=== PATIENT | female | born 1985 | race Caucasian/White ===

== ENCOUNTER 2016-08-01 21:52 | Emergency (ER) | payer OTHER ==
[~2016-08-01] VITALS: Ht 160 cm; Wt 56.5 kg
[~2016-08-01 21:52] MED LIST: PREN1TAB13 PO
[2016-08-01 21:57] VITALS: Ht 160 cm; Wt 56.5 kg
--- NOTE | 2016-08-01 22:44 | ERD ---
ER Documentation Chief Complaint Date/Time DATE: 08/01/16 TIME: 22:41 Chief Complaint FLANK PAIN X 8 DAYS HPI 31-year-old female presents here in emergency department for complaints of lower back pain, pelvic pain starting 8 days prior to arrival. Patient's approximately 13 weeks . Patient is 3 para 2 0. Patient described the pain as sharp pain, 6/10 scale, intermittent. It is worse upon movement. It radiates the bilateral lower legs. Patient did not take any medications to help with symptoms. Patient was seen in another emergency department, was too to have normal examination. ROS All systems reviewed and are negative except as per history of present illness. Medications Home Meds Reported Medications Vit-Iron Fumarate-FA ( Vitamins Tablet) 1 Tab Tablet, 1 TAB PO DAILY, TAB 05/24/15 Allergies Allergies: Coded Allergies: No Known Allergy (Verified Allergy, Unknown, 11/20/08) PMhx/Soc Medical and Surgical Hx: pt denies Medical Hx, pt denies Surgical Hx FmHx Family History: No coronary disease, No diabetes, No other Physical Exam Vitals Vital Signs Date Time Temp Pulse Resp B/P Pulse Ox O2 Delivery O2 Flow Rate FiO2 08/01/16 21:57 99.7 87 20 134/72 98 Physical Exam GENERAL: The patient is well developed and appropriate for usual state of health, in no apparent distress. CHEST: Clear to auscultation bilaterally. There are no rales, wheezes or rhonchi. HEART: Regular rate and rhythm. No murmurs, clicks, rubs or gallops. No S3 or S4. ABDOMEN: Soft, nontender and nondistended. Good bowel sounds. No rebound or guarding. No gross peritonitis. No gross organomegaly or masses. No Wharton sign or McBurney point tenderness. BACK: No midline or flank tenderness. EXTREMITIES: Equal pulses bilaterally. There is no peripheral clubbing, cyanosis or edema. No focal swelling or erythema. Full range of motion. Grossly neurovascularly intact. NEURO: Alert and oriented. Cranial nerves 2-12 intact. Motor strength in all 4 extremities with 5/5 strength. Sensation grossly intact. Normal speech and gait. SKIN: There is no apparent rash or petechia. The skin is warm and dry. HEMATOLOGIC AND LYMPHATIC: There is no evidence of excessive bruising or lymphedema. No gross cervical, axillary, or inguinal lymphadenopathy. Result Diagram: 1/13/17 2249 Results 24 hrs Laboratory Tests Test 08/01/16 22:49 08/01/16 23:09 Basophils # 0.010^3/ul Basophils % 0.2% Beta HCG, Quantitative 95636.0mIU/ml Eosinophils # 0.210^3/ul Eosinophils % 2.1% Hematocrit 37.4% Hemoglobin 13.1g/dl Lymphocytes # 3.010^3/ul Lymphocytes % 28.7% Mean Corpuscular Hemoglobin 29.6pg Mean Corpuscular Hemoglobin Concent 35.1g/dl Mean Corpuscular Volume 84.2fl Mean Platelet Volume 8.1fl Monocytes # 0.710^3/ul Monocytes % 6.3% Neutrophils # 6.510^3/ul Neutrophils % 62.7% Nucleated Red Blood Cells # 0.010^3/ul Nucleated Red Blood Cells % 0.0/100WBC Platelet Count 98948^3/UL Red Blood Count 4.4410^6/ul Red Cell Distribution Width 13.1% White Blood Count 10.410^3/ul Urine Bacteria FEW Urine Bilirubin NEGATIVE Urine Clarity CLEAR Urine Color LT. YELLOW Urine Glucose NEGATIVE% Urine Hemoglobin TRACE Urine Ketones NEGATIVE Urine Leukocyte Esterase TRACE Urine Microscopic RBC 2-5/HPF Urine Microscopic WBC 5-10/HPF Urine Nitrite NEGATIVE Urine Specific [place]ifle >=1.030 Urine Squamous Epithelial Cells MODERATE Urine Total Protein NEGATIVE Urine Urobilinogen 0.2 E.U./dL Urine pH 6.0 PROCEDURE: US OB. CLINICAL INDICATION: Pain. TECHNIQUE: Multiple sonographic images of the pelvis were obtained. Transabdominal imaging only was performed. The images were reviewed on a PACS workstation. COMPARISON: 07/24/2016. FINDINGS: Single live intrauterine is identified. Cardiac activity is present with 161 beats per minute. There is a breech presentation. Measurements: BPD = 14 weeks 1 day. HC = 14 weeks 0 days. AC = 14 weeks 0 days. FL = 14 weeks 0 days. Estimated gestational age of approximately 14 weeks 0 days. The estimated date of delivery is 01/30/2017. The EFW = 88 g which is at the less than 3rd percentile.. The placenta is posterior. IMPRESSION: Single live intrauterine gestation of approximately 14 weeks 0 days. RPTAT: [facility]K .Gerard Delcid MD, MD Date Time Electronically viewed and signed by .Gerard Delcid MD, MD on 08/01/2016 23:31 Procedures/MDM Medical Decision Making: Patient symptoms for about pain is nonspecific at this time, most likely from musculoskeletal pain from the groin . Patient also has urinary tract infection and will be treated. Patient will be given Keflex prescription to go home with. Patient will be given Tylenol for pain. There is low suspicion for abdominal emergencies at this time. Patients abdominal exam is normal at this time. Ultrasound done and noted to have a viable which is stable. There is low suspicion for appendicitis, cholecystitis, abdominal aortic aneurysms or peritonitis at this time. There is low suspicion for sepsis. Patient appears well and is hemodynamically stable. Low suspicion for pyelonephritis. No CVA tenderness noted. Disposition: Home. Condition: Stable Prescription Tylenol, Keflex Instructions: Patient is advised to take medications as prescribed. Patient is advised to rest, increase fluid intake and do brat diet for next 1-2 days and progress as tolerated. Patient is advised that if symptoms are worse, severe abdominal pain, uncontrolled vomiting, high fever, severe flank pain, worst signs and symptoms, to return to the emergency department immediately. Otherwise, patient can follow up with primary care doctor in 5-7 days. Departure Diagnosis: Primary Impression: Back pain Back pain location: low back pain Chronicity: acute Back pain laterality: bilateral Sciatica presence: without sciatica Qualified Code: M54.5 - Acute bilateral low back pain without sciatica Additional Impressions: UTI (urinary tract infection) Urinary tract infection type: acute cystitis Hematuria presence: without hematuria Qualified Code: N30.00 - Acute cystitis without hematuria Intrauterine Condition: Stable Patient Instructions: Back Pain (Acute Or Chronic), Understanding Urinary Tract Infections (UTIs) Additional Instructions: Patient is advised to take medications as prescribed. Patient is advised to rest , increase fluid intake and do brat diet for next 1-2 days and progress as tolerated. Patient is advised that if symptoms are worse, severe abdominal pain , uncontrolled vomiting, high fever, severe flank pain, worst signs and symptoms , to return to the emergency department immediately. Otherwise, patient can follow up with primary care doctor in 5-7 days. KOFI ADAIR NP Aug 01, 2016 22:44
[2016-08-01 23:19] LABS: ADD UMIC YES; URINE BILIRUBIN (Dip) NEGATIVE (NEGATIVE); URINE BLOOD (Dip) TRACE (NEGATIVE); URINE COLOR LT. YELLOW (YELLOW); URINE GLUCOSE (Dip) NEGATIVE (NEGATIVE); URINE KETONES (Dip) NEGATIVE (NEGATIVE); URINE LEUKOCYTE ESTERASE (Dip) TRACE (NEGATIVE); URINE NITRITE (Dip) NEGATIVE (NEGATIVE); URINE TOTAL PROTEIN (Dip) NEGATIVE (NEGATIVE); URINE UROBILINOGEN (Dip) 0.2 E.U./dL (0.1-1.0)
--- NOTE | 2016-08-01 23:31 | RADRPT ---
PROCEDURE: US OB. CLINICAL INDICATION: Pain. TECHNIQUE: Multiple sonographic images of the pelvis were obtained. Transabdominal imaging only w as performed. The images were reviewed on a PACS workstation. COMPARISON: 07/24/2016. FINDINGS: Single live intrauterine is identified. Cardiac activity is present with 161 beats per mi nute. There is a breech presentation. Measurements: BPD = 14 weeks 1 day. HC = 14 weeks 0 days. AC = 14 weeks 0 days. FL = 14 weeks 0 days. Estimated gestational age of approximately 14 weeks 0 days. The estimated date of delivery is 01/30/2017. The EFW = 88 g which is at the less than 3rd percentile.. The placenta is posterior. IMPRESSION: Single live intrauterine gestation of approximately 14 weeks 0 days. RPTAT: [facility]VK .Gerard Delcid MD, MD Date Time Electronically viewed and signed by .Gerard Delcid MD, MD on 08/01/2016 23:31 .K/
[2016-08-01 23:42] LABS: BASOPHILS % 0.2 % (0.0-2.0); EOSINOPHILS # 0.2 10^3/ul (0.0-0.5); EOSINOPHILS % 2.1 % (0.0-7.0); HEMATOCRIT 37.4 % (37.0-47.0); HEMOGLOBIN 13.1 g/dl (12.0-16.0); LYMPHOCYTES % 28.7 % (15.0-51.0); MEAN CORPUSCULAR HEMOGLOBIN 29.6 pg (29.0-33.0); MEAN CORPUSCULAR HGB CONC 35.1 g/dl (32.0-37.0); MEAN CORPUSCULAR VOLUME 84.2 fl (82.0-101.0); MEAN PLATELET VOLUME 8.1 fl (7.4-10.4); MONOCYTE # 0.7 10^3/ul (0.3-0.9); MONOCYTES % 6.3 % (0.0-11.0); NEUTROPHIL # 6.5 10^3/ul (1.6-7.5); NEUTROPHILS % 62.7 % (39.0-77.0); PLATELET COUNT 360 10^3/UL (140-440); RED BLOOD COUNT 4.44 10^6/ul (4.20-5.40); RED CELL DISTRIBUTION WIDTH 13.1 % (11.5-14.5); UNCORRECTED WBC 10.4 10^3/ul (4.8-10.8); WHITE BLOOD COUNT 10.4 10^3/ul (4.8-10.8)
[2016-08-01 23:52] LABS: CONDITION 1
[2016-08-01 23:58] LABS: BACTERIA,URINE FEW; SQUAMOUS EPITHELIAL CELL,UR MODERATE
[2016-08-02] MEDS ORDERED: ACET500C5 PO (01:00)
[2016-08-02] MEDS ORDERED: CEPH-443 PO (01:00)
[2016-08-02 01:11] VITALS: BP 112/63; PULSE 84; RESP 18; TEMP 98.6
== END 2016-08-02 01:36 | disposition home or self-care (01) ==
LOC: FTE 21:52
DX: O99.89 Other specified diseases and conditions complicating pregnancy, childbirth and the puerperium (principal); O23.11 Infections of bladder in pregnancy, first trimester; R10.2 Pelvic and perineal pain; M54.5 Low back pain; Z3A.14 14 weeks gestation of pregnancy
CPT/HCPCS: 36415; 76805; 81001; 84702; 85025; 86900; 86901; Z7502; 81003

== ENCOUNTER 2017-02-01 09:24 | Inpatient (IN) | payer OTHER ==
[~2017-02-01] VITALS: Ht 154.9 cm; Wt 74.5 kg
[~2017-02-01 09:24] MED LIST changes: +ACET500C5 PO; +CEPH-443 PO
[2017-02-01 09:29] VITALS: Ht 154.9 cm; Wt 74.5 kg
[2017-02-01 09:34] VITALS: BP 121/76; PULSE 81; RESP 18
--- NOTE | 2017-02-01 10:26 | RADRPT ---
PROCEDURE: US OB. CLINICAL INDICATION: Post dates TECHNIQUE: Multiple sonographic images of the pelvis were obtained. The images were reviewed on a PACS workstation. COMPARISON: No prior studies are available for comparison. FINDINGS: There is a single live intrauterine . cardiac activity is identified at a rate of 16 5 beats per minute. presentation is cephalic. Placenta is fundal grade II. Biophysical profile score is as follows: Breathing 2 Movements 2 Tone 2 Fluid volume 2 Amniotic fluid index = 12.03 cm Total biophysical profile score = 8/8 IMPRESSION: Biophysical profile score = 8/8 RPTAT: HH .Phillip Miguel MD, Date Time Electronically viewed and signed by .Phillip Miguel MD, MD on 02/01/2017 10:25 .W/
--- NOTE | 2017-02-01 10:30 | RADRPT ---
PROCEDURE: US OB. CLINICAL INDICATION: Post dates TECHNIQUE: Multiple sonographic images of the pelvis were obtained. The images were reviewed on a PACS workstation. COMPARISON: No prior studies are available for comparison. FINDINGS: There is a single viable intrauterine gestation. Cardiac activity is present with 144 beats per min [place] [employer]. There is a cephalic presentation. Measurements were made in order to determine age. The results are as follows: BPD =8.46 cm HC =31.20 cm AC =31.48 cm FL =6.68 cm. Estimated gestational age of approximately 35 weeks 0 days The estimated date of delivery is 03/08/2017. The EFW = 2578 g < 3% . The placenta is fundal grade II.. There is no evidence for an abruption There is a normal amount of amniotic fluid with an BRITTANEY = 12.03 cm. IMPRESSION: Single viable intrauterine gestation of approximately 35 weeks 0 days. The estimated date of delive ry is 03/08/2017 . If there is significant discrepancy between the estimated gestational age by LMP which is 40 weeks 1 day compared the estimated ultrasound dates of 35 weeks 0 days RPTAT: HH .Phillip Miguel MD, Date Time Electronically viewed and signed by .Phillip Miguel MD, MD on 02/01/2017 10:30 .W/
[2017-02-01] MEDS ORDERED: LACTATED RINGER'S 1,000 ML IV SCH (10:51)
--- NOTE | 2017-02-01 10:55 | TRIAGE ---
OB Triage Datetime Report Generated by CPN: 02/01/2017 10:55 Datetime: 02/01/2017 09:36 Time of Arrival: 02/01/2017 09:16 EGA: 40.1 Arrived By: Ambulatory Arrived From: Home Chief Complaint: Came with prescription from MD Greenwood's office for EFW and BPP Movement: Present Contractions: Denies/Absent Rupture of Membranes: Denies Vaginal Bleeding: Normal Show Vaginal Discharge: Denies Recent Sexual Intercouse: Denies Abdominal Trauma: Not Applicable Patient Complaints: Other Initial Plan: EFW, BPP Datetime: 02/01/2017 09:35 Assessment Type: Triage Maternal Assessment Level of Consciousness: Fully Conscious DTR's/Clonus: DTRs 2+; No Clonus Headache: Denies Blurred Vision: No Respiratory Effort: Unlabored; Regular Rhythm; Equal Expansion Breath Sounds, Left: Clear and Equal Breath Sounds, Right: Clear and Equal Nausea/Vomiting: Denies RUQ Epigastric Pain: Denies Lower Extremities Edema: Bilateral Lower Extremities Degree: Trace Upper Extremities Edema: None Degree: None Facial Edema: None Fall Risk Assessment History of Falling: (0) No Secondary Diagnosis: (0) No Ambulatory Aid: (0) Bedrest/Nurse Assist IV Therapy: (0) No Gait: (0) Normal/Bedrest/Immobile Mental Status: (0) Oriented to Own Ability Fall Score: 0 Fall Risk Score Definition: No Risk: No action required Datetime: 02/01/2017 09:25 Stage of : OB Triage
[2017-02-01] MEDS ORDERED: METHYLERGONOVINE 0.2 MG INJ IM PRN ×2 (11:00→14:00)
[2017-02-01] MEDS ORDERED: LIDOCAINE 1% (MPF) 30 ML INJ INJ PRN (11:00)
[2017-02-01] MEDS ORDERED: LACTATED RINGER'S 1,000 ML IV PRN (11:00)
[2017-02-01] MEDS ORDERED: AMPICILLIN 2 GM/NS (PMX) 100 ML IV ONE (11:00)
[2017-02-01] MEDS ORDERED: CARBOPROST 250 MCG INJ IM PRN ×2 (11:00→14:00)
[2017-02-01] MEDS ORDERED: OXYTOCIN 30 UNITS/LR 500 ML IV SCH ×2 (11:00)
[2017-02-01] MEDS ORDERED: IBUPROFEN 600 MG TAB PO PRN (11:00)
[2017-02-01] MEDS ORDERED: OXYTOCIN 30 UNITS/LR 500 ML IV PRN ×2 (11:00→14:00)
[2017-02-01] MEDS ORDERED: BUTORPHANOL 2 MG INJ IV PRN (11:00)
[2017-02-01] MEDS ORDERED: MISOPROSTOL 200 MCG TAB PR PRN ×2 (11:00→14:00)
[2017-02-01 11:37] LABS: ADD SCAN DIFF NO
[2017-02-01 11:42] LABS: BASOPHILS % 0.3 % (0.0-2.0); EOSINOPHILS # 0.1 10^3/ul (0.0-0.5); EOSINOPHILS % 0.8 % (0.0-7.0); HEMATOCRIT 40.1 % (37.0-47.0); HEMOGLOBIN 13.3 g/dl (12.0-16.0); LYMPHOCYTES % 19.1 % (15.0-51.0); MEAN CORPUSCULAR HEMOGLOBIN 28.8 pg (29.0-33.0); MEAN CORPUSCULAR HGB CONC 33.2 g/dl (32.0-37.0); MEAN CORPUSCULAR VOLUME 86.8 fl (82.0-101.0); MEAN PLATELET VOLUME 10.2 fl (7.4-10.4); MONOCYTE # 0.7 10^3/ul (0.3-0.9); MONOCYTES % 6.4 % (0.0-11.0); NEUTROPHIL # 7.6 10^3/ul (1.6-7.5); NEUTROPHILS % 72.8 % (39.0-77.0); PLATELET COUNT 301 10^3/UL (140-415); RED BLOOD COUNT 4.62 10^6/ul (4.20-5.40); RED CELL DISTRIBUTION WIDTH 13.3 % (11.5-14.5); WHITE BLOOD COUNT 10.5 10^3/ul (4.8-10.8)
[2017-02-01 12:01] LABS: INR 0.96; PARTIAL THROMBOPLASTIN TIME 27.6 Sec (25.0-35.0); PROTIME 12.8 Sec (12.2-14.2)
--- NOTE | 2017-02-01 12:08 | LDN ---
Date/Time of Note Date/Time of Note DATE: 02/01/17 TIME: 12:03 Delivery Summary OB stat called as pt OB not available. walked into room and head had delivered. shoulder dystocia encountered and with macroberts and rubins maneuver head shoulder delivered without any complications. plancenta delivered. mom and baby stable to recovery. Placenta Delivered: Spontaneously Meconium: none Anesthesia type: None Estimated blood loss: 100 Sponge & Needle done & correct: Yes All needle counts correct: Yes Any foreign bodies felt in the: No Problems: Delivery Information Umbilical Cord Umbilical cord with: 3 Vessels Cord presentations: nuchal cord Nuchal cord present X: 1 Cord Blood was obtained: Yes CHERIE MCMAHON MD Feb 01, 2017 12:07
--- NOTE | 2017-02-01 13:09 | HP ---
Date/Time of Note Date/Time of Note DATE: 02/01/17 TIME: 13:06 OB - History Hx of Present Chief Complaint: contractions Estimated Due Date: Jan 31, 2017 : 3 Para: 2 Spontaneous : 0 Therapeutic : 0 Care: Good Care Ultrasounds: Normal mid trimester US Obstetrical Complications: None Medical Complications: None Past Family/Social History * Past Medical, Surgical, Family and Obstetric Histories reviewed from chart. GBS Status: Positive OB Admission Exam Vital Signs Vital Signs Vital Signs Date Time Temp Pulse Resp B/P Pulse Ox O2 Delivery O2 Flow Rate FiO2 02/01/17 09:34 98.9 81 18 121/76 Room Air Physical Exam HEENT: WNL Heart: Rhythm Normal Lungs: Clear Abdomen: WNL Extremities: Normal Cervical Dilatation: 4cm Effacement: 50% Station: -1 Membranes: Intact Heart Rate: 130's Accelerations: Accelerations Present Decelerations: No Decelerations Varibility: Moderate Last 72 hours Lab Results CBC & BMP 02/01/17 11:10 OB Assessment/Plan Reason for admission: active labor Plan: Expectant Management ABRIL NEWTON MD Feb 01, 2017 13:08
[2017-02-01] MEDS ORDERED: BENZOCAINE 20% 56 ML SPRAY TOP PRN (14:00)
[2017-02-01] MEDS ORDERED: WITCH HAZEL/GLYCERIN PAD PR PRN (14:00)
[2017-02-01] MEDS ORDERED: ACETAMINOPHEN 325 MG TAB PO PRN (14:00)
[2017-02-01] MEDS ORDERED: DIBUCAINE 1% 30 GM OINT PR PRN (14:00)
[2017-02-01] MEDS ORDERED: ACETAMINOPHEN/CODEINE #3 TAB PO PRN (14:00)
[2017-02-01] MEDS: LACTATED RINGER'S 1,000 ML IV* SCH (14:20)
[2017-02-01 15:00] VITALS: BP 120/62; PULSE 82; RESP 17
[2017-02-01] MEDS ORDERED: AMPICILLIN 1 GM/NS (PMX) 50 ML IV SCH (15:00)
[2017-02-01 20:15] VITALS: BP 115/72; PULSE 81; RESP 19
[2017-02-02] MEDS: IBUPROFEN 600 MG TAB PO SCH ×4 (00:11→17:51)
[2017-02-02] MEDS: SENNA/DOCUSATE NA (8.6MG/50MG) TAB PO SCH ×2 (00:12→09:26)
[2017-02-02] MEDS: LACTATED RINGER'S 1,000 ML IV* SCH (00:57)
[2017-02-02 04:32] VITALS: BP 122/61; PULSE 85; RESP 19
[2017-02-02 07:23] LABS: ADD SCAN DIFF NO
[2017-02-02 07:30] VITALS: BP 117/62; PULSE 85; RESP 18
[2017-02-02 07:32] LABS: BASOPHIL # 0.1 10^3/ul (0.0-0.1); BASOPHILS % 0.5 % (0.0-2.0); EOSINOPHILS # 0.2 10^3/ul (0.0-0.5); EOSINOPHILS % 1.8 % (0.0-7.0); HEMATOCRIT 35.4 % (37.0-47.0); HEMOGLOBIN 11.4 g/dl (12.0-16.0); LYMPHOCYTES # 2.9 10^3/ul (0.8-2.9); LYMPHOCYTES % 26.7 % (15.0-51.0); MEAN CORPUSCULAR HEMOGLOBIN 28.4 pg (29.0-33.0); MEAN CORPUSCULAR HGB CONC 32.2 g/dl (32.0-37.0); MEAN CORPUSCULAR VOLUME 88.3 fl (82.0-101.0); MEAN PLATELET VOLUME 10.3 fl (7.4-10.4); MONOCYTE # 0.8 10^3/ul (0.3-0.9); MONOCYTES % 7.4 % (0.0-11.0); NEUTROPHIL # 6.8 10^3/ul (1.6-7.5); NEUTROPHILS % 62.9 % (39.0-77.0); PLATELET COUNT 261 10^3/UL (140-415); RED BLOOD COUNT 4.01 10^6/ul (4.20-5.40); RED CELL DISTRIBUTION WIDTH 13.5 % (11.5-14.5); WHITE BLOOD COUNT 10.7 10^3/ul (4.8-10.8)
[2017-02-02 16:00] VITALS: BP 121/61; PULSE 80; RESP 18
--- NOTE | 2017-02-02 19:52 | DS ---
Date/Time of Note Date/Time of Note DATE: 02/02/17 TIME: 19:51 Obstetrical Discharge Record Final Diagnosis Final Diagnosis: Term delivered Vaginal Delivery Obstetrical Delivery: Spontaneous Condition on Discharge Physical Assessment Voiding: Yes Bowel Movement: Yes Breast: Soft, non-tender Fundus: Firm Calf Tenderness: No Patient Condition: Stable ABRIL NEWTON MD Feb 02, 2017 19:51
[2017-02-02 20:00] VITALS: BP 107/71; PULSE 74; RESP 19
[2017-02-02 20:20] VITALS: BP 107/71; PULSE 74; RESP 19
[2017-02-03] MEDS: SENNA/DOCUSATE NA (8.6MG/50MG) TAB PO SCH ×2 (00:08→09:53)
[2017-02-03] MEDS: IBUPROFEN 600 MG TAB PO SCH ×3 (00:08→11:13)
[2017-02-03 04:00] VITALS: BP 132/60; PULSE 75; RESP 19
[2017-02-03 07:30] VITALS: BP 110/66; PULSE 67; RESP 18
[2017-02-03] MEDS ORDERED: DIPHTH/TET/ACEL PERTUSS (ADULT) 0.5 ML VIAL IM* ONE (09:00)
== END 2017-02-03 17:27 | disposition home or self-care (01) | DRG 775 ==
LOC: OBT 09:24 → L-D 09:24 → OBT 10:50 → L-D 10:50 → PP1 14:41
PROVIDERS: ADMIT Obstetrics & Gynecology; ATTEND Obstetrics & Gynecology
PROC: 10E0XZZ Delivery of Products of Conception, External Approach (ICD-10-PCS; principal; 2017-02-01)
DX: O48.0 Post-term pregnancy (principal); O99.824 Streptococcus B carrier state complicating childbirth; O69.81X0 Labor and delivery complicated by cord around neck, without compression, not applicable or unspecified; Z3A.40 40 weeks gestation of pregnancy; Z37.0 Single live birth
CPT/HCPCS: 76815; 76818; 85025; 85610; 85730; 86592; 86900; 86901; 87340; 90715; G0463; J0290; J2590; J7120